=== PATIENT | male | born 1945 | race Caucasian/White ===

== ENCOUNTER → 2016-08-21 | Outpatient (CLI) | payer MEDICARE, BC | LOC: SUN.DIA 10:00 | DX: E11.65 Type 2 diabetes mellitus with hyperglycemia (principal); Z68.26 Body mass index [BMI] 26.0-26.9, adult; Z71.3 Dietary counseling and surveillance; I10 Essential (primary) hypertension | CPT/HCPCS: G0108 ==

== ENCOUNTER → 2016-09-12 | Outpatient (CLI) | payer MEDICARE | LOC: SUN.DIA 13:00 | DX: E11.65 Type 2 diabetes mellitus with hyperglycemia (principal); Z68.25 Body mass index [BMI] 25.0-25.9, adult; Z71.3 Dietary counseling and surveillance; I10 Essential (primary) hypertension ==

== ENCOUNTER → 2017-03-13 | Outpatient (CLI) | payer MEDICARE, BC | LOC: MHCPAIN 08:46 | DX: G89.29 Other chronic pain (principal); M47.27 Other spondylosis with radiculopathy, lumbosacral region; M53.3 Sacrococcygeal disorders, not elsewhere classified; Z79.82 Long term (current) use of aspirin | CPT/HCPCS: G0463 ==

== ENCOUNTER 2017-05-07 10:15 | Outpatient (RCR) | payer MEDICARE, BC | END 2017-05-28 08:01 | disposition home or self-care (01) | LOC: WSPT 10:15 | DX: M47.27 Other spondylosis with radiculopathy, lumbosacral region (principal); M53.3 Sacrococcygeal disorders, not elsewhere classified; M79.2 Neuralgia and neuritis, unspecified | CPT/HCPCS: G8978-GP; G8979-GP; G8980-GP ==

== ENCOUNTER → 2017-05-13 | Outpatient (CLI) | payer MEDICARE, BC | LOC: MHCPAIN 12:30 | DX: G89.29 Other chronic pain (principal); M47.27 Other spondylosis with radiculopathy, lumbosacral region; M53.3 Sacrococcygeal disorders, not elsewhere classified | CPT/HCPCS: G0463 ==